=== PATIENT | male | born 1960 | race African-American/Black ===

== ENCOUNTER 2023-09-14 18:01 | Emergency (ER) | payer OTHER, SELFPAY ==
[2023-09-14] MEDS ORDERED: Aspirin Chewable 81 MG TAB ONE (18:19)
[2023-09-14] MEDS ORDERED: Nitroglycerin 0.4 MG TAB (25 Tab Bottle) ONE (18:19)
[2023-09-14 18:27] LABS: #Basophils 0.1 thou/uL (0.0-0.2); #Eosinphils 0.4 thou/uL (0.0-0.7); #Lymphocytes 2.4 thou/uL (1.20-3.40); #Monocytes 0.7 thou/uL (0.11-0.59); #Neutrophils 5.1 thou/uL (1.40-6.50); %Basophils 1.5 % (0.0-1.0); %Eosinophils 4.9 % (0.0-10.0); %Lymphocytes 27.6 % (21.0-51.0); %Monocytes 7.8 % (0.0-10.0); %Neutrophils 58.2 % (42.0-75.0); Hematocrit 36.8 % (42.0-52.0); Hemoglobin 11.7 g/dL (14.0-18.0); Mean Corpuscular HGB CONC 31.7 g/dL (32.0-36.0); Mean Corpuscular Volume 94.6 fl (78.0-98.0); Mean Platelet Volume 9.5 fL (7.4-10.4); Platelet Count 193 10x3/uL (130-400); Red Blood Cell (RBC) Count 3.89 mill/uL (4.70-6.10); White Blood Cell (WBC) Count 8.7 10x3/uL (4.8-10.8)
[2023-09-14 18:42] LABS: ALT (SGPT) 13 U/L (8-55); AST (SGOT) 17 U/L (5-34); Albumin 4.1 g/dL (3.4-4.8); Alkaline Phosphatase 62 U/L (40-110); Anion Gap 15 mmol/L (10-20); BUN (Urea Nitrogen) 29 mg/dL (8.4-25.7); Bilirubin, Total 0.4 mg/dL (0.2-1.2); Calc. Creatinine Clearance 0 mL/min (70-130); Calcium 8.8 mg/dL (7.8-10.44); Carbon Dioxide 19 mmol/L (23-31); Chloride 110 mmol/L (98-107); Estimated GFR 22; Globulin 3.8 g/dL (2.4-3.5); Glucose 110 mg/dL (80-115); Potassium 4.2 mmol/L (3.5-5.1); Protein, Total 7.9 g/dL (5.8-8.1); Sodium 140 mmol/L (136-145)
[2023-09-14 18:43] LABS: Troponin I 0.012 ng/mL (< 0.028)
[2023-09-14 20:51] LABS: Troponin I Less than 0.010 ng/mL (< 0.028)
[2023-09-14] MEDS ORDERED: Lisinopril 20 MG TAB ONE (21:15)
== END 2023-09-14 21:30 | disposition home or self-care (01) ==
LOC: NAV ERS 18:01
DX: R07.89 Other chest pain (principal); D64.9 Anemia, unspecified; I12.9 Hypertensive chronic kidney disease with stage 1 through stage 4 chronic kidney disease, or unspecified chronic kidney disease; E11.22 Type 2 diabetes mellitus with diabetic chronic kidney disease; N18.30 Chronic kidney disease, stage 3 unspecified; F17.210 Nicotine dependence, cigarettes, uncomplicated; Z79.84 Long term (current) use of oral hypoglycemic drugs; Z79.899 Other long term (current) drug therapy
CPT/HCPCS: 36415; 71045; 80053; 84484; 85025; 85379; 93005

== ENCOUNTER 2024-10-19 09:17 | Emergency (ER) | payer OTHER, SELFPAY ==
[2024-10-19] MEDS ORDERED: CEFAZOLIN 1 GM VIAL ONE (09:35)
[2024-10-19] MEDS ORDERED: Boostrix 0.5 ML (Tdap) VIAL (>/=7 yrs of age) ONE (09:35)
[2024-10-19] MEDS ORDERED: Sodium Chloride 0.9% 100 ML ONE (09:35)
[2024-10-19] MEDS ORDERED: Ondansetron PF 4 MG/2 ML Vial ONE (11:07)
[2024-10-19] MEDS ORDERED: Morphine 4 MG/ML VIAL ONE (11:07)
== END 2024-10-19 11:50 | disposition home or self-care (01) ==
LOC: NAV ERS 09:17
DX: S60.552A Superficial foreign body of left hand, initial encounter (principal); I10 Essential (primary) hypertension; F17.210 Nicotine dependence, cigarettes, uncomplicated; E11.9 Type 2 diabetes mellitus without complications; W45.8XXA Other foreign body or object entering through skin, initial encounter
CPT/HCPCS: 90471; 90715; 96374; 96375; J0690; J2272; J2405